=== PATIENT | male | born 1955 ===

== ENCOUNTER 2022-07-25 07:01 | Day surgery (SDC) | payer BC ==
[~2022-07-25 07:01] MED LIST: Lactated Ringers 1,000 ML IV SCH; Sodium Chloride 0.9% 10 ML Syringe FLUSH PRN
[2022-07-25] MEDS ORDERED: Propofol 200 MG/20 ML SDV IV ONE (07:02)
[2022-07-25] MEDS ORDERED: Lidocaine 2% 5 ML SDV INJECT ONE (07:02)
[2022-07-25] MEDS ORDERED: Simethicone Drops 40 MG/0.6 ML 30 ML Bottle ONE (08:42)
== END 2022-07-25 09:50 | disposition home or self-care (01) ==
LOC: FB.SDS 07:01
PROVIDERS: ATTEND Surgery
DX: Z12.11 Encounter for screening for malignant neoplasm of colon (principal); D12.2 Benign neoplasm of ascending colon; D12.4 Benign neoplasm of descending colon; K57.30 Diverticulosis of large intestine without perforation or abscess without bleeding; N40.0 Benign prostatic hyperplasia without lower urinary tract symptoms; Z98.890 Other specified postprocedural states; Z96.659 Presence of unspecified artificial knee joint
CPT/HCPCS: 00812-QZ; 88305; A9270-GY; J2704; J7120

== ENCOUNTER 2025-01-16 08:15 | Day surgery (SDC) | payer BC ==
[~2025-01-16 08:15] MED LIST changes: -Lactated Ringers 1,000 ML IV SCH
[2025-01-16] MEDS ORDERED: Propofol 200 MG/20 ML SDV IV ONE (08:16)
[2025-01-16] MEDS ORDERED: Lidocaine 2% 100 MG/5 ML Syringe IVPUSH ONE (08:16)
[2025-01-16] MEDS: Lactated Ringers 1,000 ML IV SCH (10:15)
[2025-01-16] MEDS: Simethicone Drops 40 MG/0.6 ML 30 ML Bottle ONE (10:50)
== END 2025-01-16 13:20 | disposition home or self-care (01) ==
LOC: FB.SDS 08:15
PROVIDERS: ATTEND Surgery
DX: Z12.11 Encounter for screening for malignant neoplasm of colon (principal); D12.3 Benign neoplasm of transverse colon; Z86.0100 Personal history of colon polyps, unspecified; E03.9 Hypothyroidism, unspecified; Z79.890 Hormone replacement therapy; Z79.899 Other long term (current) drug therapy
CPT/HCPCS: 88305; A9270-GY; J2704; J7120